=== PATIENT | female | born 1955 | race African-American/Black ===

== ENCOUNTER 2022-05-24 09:13 | Outpatient (CLI) | payer OTHER | END 2022-05-24 09:14 | disposition home or self-care (01) | LOC: CSHMRI 09:13 | PROVIDERS: ATTEND Internal Medicine | DX: M54.41 Lumbago with sciatica, right side (principal); M47.816 Spondylosis without myelopathy or radiculopathy, lumbar region; M48.061 Spinal stenosis, lumbar region without neurogenic claudication | CPT/HCPCS: 72148 ==